=== PATIENT | male | born 1975 | race Hispanic/Latino ===

== ENCOUNTER 2024-08-17 02:51 | Emergency (ER) | payer OTHER ==
[~2024-08-17] VITALS: Ht 154.9 cm; Wt 73.0 kg
--- NOTE | 2024-08-17 05:06 | ERN ---
General Chief Complaint: Medical Clearance Stated Complaint: MEDICAL CLEARANCE Time Seen by MD: 05:02 Source: patient History of Present Illness Initial Comments This is a healthy 49-year-old male who has a left inguinal hernia. He was seen at [facility] about six weeks ago where it was reduced. Since then he has had increasing pain and pain in his testicle. He has to eat only small meals as it increases the pain in his left testicle. He is passing gas he is having bowel movements. It is difficult for him to urinate. Timing/Duration: 1 week, getting worse Allergies: Coded Allergies: No Known Allergies (Unverified Allergy, Unknown, 08/17/24) Past Medical History Past Medical History: Unknown Medical History Other: HX OF INGUINAL HERNIA Past Surgical History: Unknown Constitutional: (-) chills, (-) diaphoresis, (-) fever, (-) malaise, (-) weakness, (-) other documentation EENTM: (-) eye pain, (-) blurred vision, (-) tearing, (-) double vision, (-) ear pain, (-) ear discharge, (-) nose pain, (-) nose congestion, (-) throat pain, (-) Throat swelling, (-) mouth pain, (-) tooth pain, (-) mouth swelling, (-) other documentation Respiratory: (-) cough, (-) orthopnea, (-) short of breath, (-) stridor, (-) wheezing, (-) other documentation Cardiovascular: (-) chest pain, (-) edema, (-) palpitations, (-) syncope, (-) dyspnea on exertion, (-) other documentation Gastrointestinal/Abdominal: (-) nausea, (-) vomiting, (-) diarrhea, (-) abdominal pain, (-) abdominal distention, (-) constipation, (-) rectal bleeding, (-) dark stool/melena, (-) other documentation Musculoskeletal: (-) Neck pain, (-) back pain, (-) Flank Pain, (-) joint pain, (-) joint swelling, (-) muscle pain, (-) muscle stiffness, (-) gout, (-) other documentation Skin: (-) laceration, (-) contusion, (-) abrasion, (-) abscess, (-) rash, (-) change in color, (-) change in hair, (-) change in nails, (-) diaphoresis, (-) dryness, (-) other documentation Neuro: (-) altered mental status, (-) headache, (-) syncope, (-) paralysis, (-) numbness, (-) seizure, (-) pre-existing deficit, (-) tremors, (-) weakness, (-) dizziness, (-) slurred speech, (-) vertigo, (-) other documentation Physical Exam General Appearance: (+) no apparent distress, (+) mild distress Orientation: (+) alert Head/Face Trauma: No Eye: bilateral eye normal inspection, bilateral eye PERRL, bilateral eye EOMI Ear, Nose, Throat: (+) hearing grossly normal, (+) normal ENT inspection, (+) moist mucous membraine Neck: (+) normal inspection, (+) supple Respiratory: (+) chest non-tender, (+) lungs clear, (+) well ventilated Heart: (+) regular, (+) no gallop Vascular: (+) no edema, (+) normal peripheral pulse Gastrointestinal: (+) soft, (+) non-tender, (+) bowel sound present Genital: (+) normal exam, (+) testicular pain Genital Comment Patient does have a left inguinal hernia. There was a loop of bowel inside. It is not exquisitely tender patient does not have any skin color changes. I could not reduce the hernia. Results Laboratory and Microbiology Lab and Micro Result Laboratory Tests Test 08/17/24 05:48 White Blood Count 8.4 K/uL (4.8-10.8) Red Blood Count 4.66 MIL/uL (4.50-6.20) Hemoglobin 13.7 g/dL (14.0-18.0) L Hematocrit 41.3 % (42-54) L Mean Corpuscular Volume 88.6 fL (79-99) Mean Corpuscular Hemoglobin 29.4 pg (27.0-33.0) Mean Corpuscular Hemoglobin Concent 33.2 g/dL (32.0-36.0) Red Cell Distribution Width 12.7 % (11.0-15.5) Platelet Count 349 K/uL (130-400) Mean Platelet Volume 9.1 fL (7.5-10.5) Nucleated Red Blood Cells 0.0 % (0.0-0.19) Sodium Level 141 mmol/L (136-145) Potassium Level 4.1 mmol/L (3.5-5.1) Chloride Level 105 mmol/L (101-111) Carbon Dioxide Level 28 mmol/L (21-32) Blood Urea Nitrogen 8 mg/dL (7-18) Creatinine 0.7 mg/dL (0.5-1.3) Glomerular Filtration Rate Calc 113 mL/min (>90) Random Glucose 108 mg/dL (70-105) H Total Calcium 9.0 mg/dL (8.5-10.1) MDM Incarcerated but probably not related left inguinal hernia given the patient's pain and worsening of his condition I think he should be admitted contacted General surgery for the admission. In the meantime I will get a white blood cells chemistry panel at this point I do not think a CT scan is warranted. CT scan will just confirm the diagnosis from physical exam patient has no signs or symptoms of bowel obstruction. Orders written at 5:05 a.m. The general surgeon on-call and she will come in early this morning and try and reduce the hernia. If she can not then she will take the patient to the operating room if she can she will have the patient follow up with her in her office. MDM: DIFFERENTIAL DIAGNOSIS: MINORA HERNIA, INCARCERATION, RATIONALE: TESTS CONSIDERED AND ORDERED SECONDARY TO SHARED DECISION MAKING INCLUDE: PREVIOUS OUTSIDE RECORDS REVIEWED: OLD ER VISITS. RISK OF COMPLICATION AND/OR MORBIDITY OR MORTALITY OF PATIENT MANAGEMENT: NONE PATIENT WAS EVALUATED BY DR. HANKS SURGEON ON-CALL ON SHE STATES THAT SHE WAS ABLE TO REDUCE THE HERNIA. HER RECOMMENDATION IS FOR PATIENT TO FOLLOW UP IN HER CLINIC OUTPATIENT. ED Course Orders Procedure Category Date Status Time Cbc Without LAB 08/17/24 Complete Differential 05:06 Basic Metabolic Panel LAB 08/17/24 Complete 05:06 Hydromorphone 2mg PHA 08/17/24 Complete Vial (Dilaudid 2mg Inj 05:30 Hydromorphone 1 Mg PHA 08/17/24 Complete Inj (Dilaudid 1mg Inj 09:00 Current Medications Medications (Trade) Dose Ordered Sig/Brooks Route PRN Reason Start Time Stop Time Status Last Admin Dose Admin Hydromorphone HCl (DiLAUDid 1MG INJ) 1 mg ONCE ONCE IVP 08/17/24 09:00 08/17/24 09:01 DC 08/17/24 09:40 Hydromorphone HCl (DiLAUDid 2MG INJ) 2 mg ONCE ONCE IVP 08/17/24 05:30 08/17/24 05:31 DC 08/17/24 05:30 Vital Signs Date Time Temp Pulse Resp B/P (MAP) Pulse Ox O2 Delivery O2 Flow Rate FiO2 08/17/24 08:40 98.1 86 16 147/92 98 Room Air* 0 21 08/17/24 06:11 98.1 86 16 136/79 97 Room Air* 0 21 08/17/24 04:29 98.1 63 16 148/97 100 Room Air* 0 21 08/17/24 02:55 97.3 73 20 153/108 98 Room Air DX & DISP Disposition: Discharge Departure Impression: Primary Impression: Left inguinal hernia Condition: Stable Additional Instructions: FOLLOW-UP WITH PRIMARY CARE PROVIDER IN 1 TO 2 DAYS. TAKE MEDICATIONS DIRECTED HERE IN THE EMERGENCY ROOM. OKAY TO CONTINUE HOME MEDICATIONS UNLESS OTHERWISE DISCUSSED DURING YOUR VISIT IN THE EMERGENCY ROOM TODAY. RETURN TO YOUR NEAREST EMERGENCY ROOM IF SYMPTOMS WORSEN OR IF THERE IS NO IMPROVEMENT. CALL 911 IF YOU NEED IMMEDIATE ASSISTANCE. TAKE TYLENOL [id number] NEEDED AND IF NO CONTRAINDICATIONS ARE PRESENT. INCREASE ORAL HYDRATION. A WOUND CULTURE OR URINE CULTURE WAS ORDERED HERE IN THE EMERGENCY ROOM DEPARTMENT PLEASE FOLLOW-UP WITH PRIMARY CARE PROVIDER AND ADVISE THEM TO GET REPEAT PORTS FROM OUR FACILITY. IF YOU HAD ANY PETRONA WRAP/SPLINTS THAT WERE APPLIED HERE, PLEASE DO NOT REMOVE THEM UNTIL YOU SEE YOUR PRIMARY CARE OR SPECIALTY. REFERRALS: Referrals: SELF,REFERRAL (PCP) JORDY HANKS MD, LUIS A MD Time of Disposition: 10:12 TED RUTHERFORD MD Aug 17, 2024 05:06 LOUISE BERMUDEZ MD Aug 17, 2024 10:12
[2024-08-17] MEDS: hydroMORPHone 2 MG VIAL (2MG/ML) IVP ONE (05:30)
[2024-08-17 05:58] LABS: HEMATOCRIT 41.3 % (42-54); MEAN CORPUSCULAR HEMOGLOBIN 29.4 pg (27.0-33.0); MEAN CORPUSCULAR HGB CONC 33.2 g/dL (32.0-36.0); MEAN CORPUSCULAR VOLUME 88.6 fL (79-99); RED BLOOD CELL COUNT(AUTO) 4.66 MIL/uL (4.50-6.20); RED CELL DISTRIBUTION WIDTH 12.7 % (11.0-15.5); WHITE BLOOD COUNT (AUTO) 8.4 K/uL (4.8-10.8)
[2024-08-17 06:05] LABS: CREATININE 0.7 mg/dL (0.5-1.3); POTASSIUM 4.1 mmol/L (3.5-5.1)
--- NOTE | 2024-08-17 07:08 | NUR ---
REPORT GIVEN TO LISETH MACDONALD
--- NOTE | 2024-08-17 08:41 | NUR ---
DR HANKS, GEN SURGEON AT BEDSIDE.
--- NOTE | 2024-08-17 09:00 | NUR ---
GEN SURGERY DR HANKS ORDERED 1 MG DIAUDID IVP TO BE ADMINISTERED,THEN REDUCED PT'S LEFT INGUINAL HERNIA AT BEDSIDE.PT TOLERATED PROCEDURE WELL. VS STABLE. SHE WANTS PT TO SEE HER IN HER OFFICE FOR A FOLLOW UP.SHE TALKED TO ERICH TAO AT [facility] VIA PHONE.
[2024-08-17] MEDS: hydroMORPHone 1 MG INJ IVP ONE (09:40)
--- NOTE | 2024-08-17 09:46 | NUR ---
HENRY MACDONALD FROM [facility] OFFICE ENQUIRED ABOUT IF PT IS GETTING ADMITTED OR RETURNS TO FACILITY. AT THE TIME OF OUR CONVERSATION PT IS TO BE DISCHARGED FROM HERE AND RETURN TO [facility].
[2024-08-17 10:30] VITALS: BP 127/75; PULSE 80; RESP 17; TEMP 97.8; O2SAT 98
== END 2024-08-17 10:45 ==
LOC: EDH 02:51 → EEVIPCON 02:51 → EDH 10:45
DX: K40.90 Unilateral inguinal hernia, without obstruction or gangrene, not specified as recurrent (principal); N50.812 Left testicular pain
CPT/HCPCS: 99285; 96374; 80048; 85027; 36415; 96376; J1171 ×2